=== PATIENT | male | born 1950 | race Caucasian/White ===

== ENCOUNTER → 2018-02-04 | Outpatient (CLI) | payer MEDICARE, BC ==
--- NOTE | 2018-02-04 11:58 | CT ---
EXAMINATION TYPE: CT urogram wo/w con DATE OF EXAM: 02/04/2018 COMPARISON: 04/23/2017 HISTORY: Abnormal cytology. CT DLP: 3936.1 mGycm CONTRAST: Performed and without and with IV Contrast, patient injected with 100 mL of Isovue M300. CT Urography was performed with unenhanced followed by enhanced images of the kidneys, ureters and ur inary bladder. Delayed images were obtained. 3d reconstruction was perfromed at a separate work sta tion. FINDINGS: KIDNEYS/BLADDER: No hydronephrosis. No nephrolithiasis. No distinct solid renal mass. Renal cortic al cyst is again noted midpole left kidney which measures of 1.1 cm.. Urinary bladder grossly unremar kable. LUNG BASES-: No visible nodule. No infiltrate. LIVER/GB: No calcified gallstones. No space occupying hepatic lesion. Biliary tree is of normal ca liber. PANCREAS: No inflammation. No distinct mass. SPLEEN: No splenic enlargement. No lesion seen. ADRENALS: No nodule. No thickening. BOWEL: Normal appendix. Normal bowel caliber. No inflammation. GENITAL ORGANS: No gross abnormality. LYMPH NODES: No greater than 1cm abdominal or pelvic lymph nodes are appreciated. AORTA: No significant abnormality. OSSEOUS STRUCTURES: Postoperative changes lumbar spine. OTHER: No significant additional abnormality is seen. IMPRESSION: 1. Stable simple cyst left kidney. No solid lesions seen. Urinary bladder is unremarkable.
== END | disposition home or self-care (01) ==
LOC: RADCTMAIN 10:04
PROVIDERS: ATTEND Urology
DX: N28.1 Cyst of kidney, acquired (principal); R92.8 Other abnormal and inconclusive findings on diagnostic imaging of breast
CPT/HCPCS: 82565; 84520; 74178; 36415; 74400; Q9967

== ENCOUNTER → 2023-10-26 | Outpatient (CLI) | payer MEDICARE, BC ==
--- NOTE | 2023-10-27 07:38 | CA ---
Transthoracic Echo Report Name: Tay Bellamy Age: 72 Gender: M : 1950 Exam Date: 10/26/2023 11:14 Exam Location: [facility] Ht (in): 72 Wt (lb): 260 Ordering Physician: Calin Saeed MD Attending/Referring Phys: Calin Saeed MD Cafeteria Supervisor Gina Carlson RDCS Procedure CPT: Indications: I35.0 Nonrheumatic aortic (valve) stenosis Cardiac Hx: Technical Quality: Fair Contrast 1: Total Dose (mL): Contrast 2: Total Dose (mL): MEASUREMENTS (Male / Female) Normal Values 2D ECHO LV Diastolic Diameter PLAX 4.8 cm 4.2 - 5.9 / 3.9 - 5.3 cm LV Systolic Diameter PLAX 3.3 cm IVS Diastolic Thickness 1.7 cm 0.6 - 1.0 / 0.6 - 0.9 cm LVPW Diastolic Thickness 1.3 cm 0.6 - 1.0 / 0.6 - 0.9 cm LV Relative Wall Thickness 0.6 RV Internal Dim ED PLAX 3.4 cm LVOT Diameter 2.0 cm LA Volume 55.9 cm??? 18 - 58 / 22 - 52 cm??? LA Volume Index 22.5 cm???/m??? 16 - 28 cm???/m??? M-MODE Aortic Root Diameter MM 3.5 cm LA Systolic Diameter MM 3.2 cm LA Ao Ratio MM 0.9 AV Cusp Separation MM 0.8 cm DOPPLER AV Peak Velocity 278.3 cm/s AV Peak Gradient 31.0 mmHg AV Mean Velocity 178.4 cm/s AV Mean Gradient 14.4 mmHg AV Velocity Time Integral 51.4 cm LVOT Peak Velocity 119.7 cm/s LVOT Peak Gradient 5.7 mmHg LVOT Velocity Time Integral 26.7 cm LVOT Stroke Volume 81.7 cm??? LVOT Stroke Volume Index 34.3 ml/m??? LVOT Cardiac Index 2659.2 cm???/min???m??? AV Area Cont Eq vti 1.6 cm??? AV Area Cont Eq pk 1.3 cm??? MV Peak Velocity 125.7 cm/s MV Peak Gradient 6.3 mmHg MV Mean Velocity 71.7 cm/s MV Mean Gradient 2.3 mmHg MV Velocity Time Integral 22.9 cm MV Area PHT 2.7 cm??? Mitral E Point Velocity 83.7 cm/s Mitral A Point Velocity 129.7 cm/s Mitral E to A Ratio 0.6 MV Deceleration Time 278.4 ms MV E' Velocity 9.2 cm/s Mitral E to MV E' Ratio 9.1 TR Peak Velocity 238.8 cm/s TR Peak Gradient 22.8 mmHg Right Ventricular Systolic Press 27.8 mmHg FINDINGS Left Ventricle Moderately increased left ventricular wall thickness. Left ventricular cavity size normal. Normal left ventricular systolic function with no obvious regional wall motion abnormalities. Left ventricular ejection fraction is estimated at 55-60 %. Grade 1 diastolic dysfunction. Right Ventricle Normal right ventricular size and function. Right ventricular systolic pressure within normal limits. Right Atrium Normal right atrial size. Left Atrium Normal left atrial size. Mitral Valve Structurally normal mitral valve. Mitral valve thickened. Mild mitral regurgitation. Aortic Valve Trileaflet aortic valve. No aortic regurgitation. Mild aortic stenosis with a peak gradient of 31 mmHg and a mean gradient of 14 mmHg. Tricuspid Valve Structurally normal tricuspid valve. Mild tricuspid regurgitation. Pulmonic Valve Structurally normal pulmonic valve. Trace pulmonic regurgitation. Pericardium No pericardial effusion. Aorta Normal size aortic root and proximal ascending aorta. CONCLUSIONS Normal LV systolic function Aortic sclerosis with mild to moderate aortic stenosis Previewed by: Dr. Davide Huber MD (Electronically Signed) Final Date: 27 October 2023 07:37
== END | disposition home or self-care (01) ==
LOC: RADECHMAIN 11:12
PROVIDERS: ATTEND Family Medicine
DX: I35.0 Nonrheumatic aortic (valve) stenosis (principal)
CPT/HCPCS: 93306

== ENCOUNTER 2023-12-23 06:45 | Day surgery (SDC) | payer MEDICARE, BC ==
[2023-12-23] MEDS ORDERED: HEPARIN SODIUM 1,000 UN/ML (10ML VL) ONE ×2 (07:34)
[2023-12-23] MEDS ORDERED: fentaNYL (PF) 50 MCG/ML 2 ML AMP ONE ×2 (07:34)
[2023-12-23] MEDS ORDERED: MIDAZOLAM 2 MG/2 ML VIAL ONE ×2 (07:35)
[2023-12-23] MEDS ORDERED: LIDOCAINE 1% INJ 10MG/ML (20 ML MDV) ONE ×2 (07:35)
[2023-12-23] MEDS ORDERED: VERAPAMIL 2.5 MG/ML 2 ML AMP ONE ×2 (07:35)
[2023-12-23] MEDS ORDERED: SODIUM CHLORIDE 0.9% 1,000 ML BAG ONE (07:50)
[2023-12-23] MEDS ORDERED: SODIUM CHLORIDE 0.9% 250 ML BAG ONE (07:50)
[2023-12-23] MEDS ORDERED: IOPAMIDOL-370 200ML BTL ONE (07:50)
[2023-12-23] MEDS ORDERED: HEPARIN SODIUM,PORCINE 5,000 UNIT/ML 1 ML VIAL ONE (07:50)
[2023-12-23] MEDS ORDERED: BENZOCAINE SPRAY 1 CAN ONE (07:50)
--- NOTE | 2024-01-20 15:34 | CC ---
CARDIAC CATHETERIZATION REPORT INDICATION: Symptomatic gentleman with abnormal noninvasive testing. COMPLICATIONS: None. LEVEL OF SEDATION: Moderate. PROCEDURE APPROACH: Right radial artery. PROCEDURE DESCRIPTION: After obtaining an informed consent, the patient was brought to cardiac tailings dam laborer. The right radial artery was cannulated using micropuncture technique under ultrasound guidance, the micropuncture wire passed easily, then I placed a 6-Jordanian 11 cm sheath at the right radial artery. After that, I did selective right and left coronary angiogram using JR4 and JL3.5 catheter. The procedure was completed with no complication. SELECTIVE CORONARY ANGIOGRAM: 1. The RCA is a large-caliber vessel and is a dominant vessel with intermediate disease involving the PLV branch of the RCA. 2. The left main is angiographically normal. 3. The left circumflex is a large-caliber vessel, nondominant vessel with mild disease only. 4. The LAD has defn-[id number] disease in the proximal portion. CONCLUSION: Intermediate disease involving the PLV branch of the RCA and proximal LAD. POSTPROCEDURE MANAGEMENT: Medical treatment and follow up with the patient. MMODL / IJN: [id number] /
--- NOTE | 2024-01-24 10:43 | CA ---
CARDIOLOGY REPORT PROCEDURE PERFORMED: Transesophageal echocardiogram. INDICATION: Aortic stenosis. COMPLICATIONS: None. PROCEDURE DESCRIPTION: After obtaining informed consent, the patient was brought to the Cardiac wetlands conservation laborer. The patient was turned into left lateral position. A transesophageal echocardiogram was performed using 2D echo and color Doppler, and continuous-wave Doppler. CONCLUSION: 1. Normal biventricular systolic function. 2. Normal left atrial appendage. 3. Intact interatrial septum. 4. Moderate aortic stenosis with a mean gradient of only 15 mmHg. 5. Normal mitral valve, tricuspid valve, and pulmonic valve. MMODL / IJN: [id number] /
== END 2023-12-23 13:04 | disposition home or self-care (01) ==
LOC: CATHCVL 06:45
PROVIDERS: ATTEND Internal Medicine Interventional Cardiology
DX: I35.0 Nonrheumatic aortic (valve) stenosis
CPT/HCPCS: 93454

== ENCOUNTER → 2024-03-17 | Outpatient (CLI) | payer MEDICARE, BC ==
--- NOTE | 2024-03-17 22:18 | CTL ---
EXAMINATION TYPE: CT Low Dose Lung DATE OF EXAM ORDERED: 03/17/2024 HISTORY: . Lung cancer screening CT DLP: 101.[address] CTDI: 2.6 mGy Automated exposure control for dose reduction was used. SCREENING VISIT: Initial COMPARISON: None TECHNIQUE: Low dose computed tomography scan was performed through the chest at 1 mm thick sections a nd reconstructed images in the coronal plane at [address] DIAGNOSTIC QUALITY: Satisfactory FINDINGS: LUNG NODULES: None. LUNGS: COPD: Severity: None Fibrosis: Severity: None Lymph nodes: None Other findings: None RIGHT PLEURAL SPACE: Effusion: None Calcification: None Thickening: None Pneumothorax: None LEFT PLEURAL SPACE: Effusion: None Calcification: None Thickening: None Pneumothorax: None HEART: Other: Ascending thoracic aorta at the level the main pulmonary artery measures 4.2 cm. The main pul monary artery at the bifurcation measures 2.8 cm. Heart Size: Normal Coronary calcification: Moderate Pericardial effusion: None OTHER FINDINGS: Upper abdomen: Normal Bony thorax: Normal Supraclavicular region: Normal IMPRESSION: No suspicious primary or metastatic lesions. 2. Ascending thoracic aortic aneurysm of 4.[address] CHEST RECOMMENDATION: Low-dose CT chest one year CT LUNG RAD: Lung-Rad 2 Benign Appearance or Behavior [facility], , 03/17/2024 10:16 PM
== END | disposition home or self-care (01) ==
LOC: RADCTMAIN 08:43
PROVIDERS: ATTEND Family Medicine
DX: Z12.2 Encounter for screening for malignant neoplasm of respiratory organs (principal); I71.21 Aneurysm of the ascending aorta, without rupture; Z87.891 Personal history of nicotine dependence
CPT/HCPCS: 71271